=== PATIENT | male | born 1935 | race African-American/Black ===

== ENCOUNTER 2016-06-18 05:24 | Inpatient (IN) | payer OTHER ==
[2016-06-03 12:59] LABS: HEMATOCRIT 34.1 % (42.0-52.0); MCH 33.2 pg (26.0-34.0); MCHC 35.1 g/dL (28.0-37.0); MCV 94.6 fL (80.0-100.0); RBC 3.61 mil/uL (4.50-6.00); RDW 15.2 % (10.5-14.5); URINE BILIRUBIN NEGATIVE (Negative); URINE BLOOD NEGATIVE (Negative); URINE COLOR YELLOW; URINE GLUCOSE-RANDOM* NEGATIVE (Negative); URINE KETONES NEGATIVE (Negative); URINE LEUKOCYTES-REFLEX NEGATIVE (Negative); URINE PROTEIN (DIPSTICK) NEGATIVE (Negative); URINE UROBILINOGEN 0.2 E.U./dl (0.2-1.0); WBC 6.7 thou/uL (4.0-11.0)
[2016-06-03 13:16] LABS: PROTIME 10.5 Seconds (9.3-11.4)
[2016-06-03 13:32] LABS: ALBUMIN 3.8 g/dL (3.4-5.0); CALCIUM 9.4 mg/dL (8.5-10.1); CREATININE 1.3 mg/dL (0.6-1.3); POTASSIUM 3.6 mmol/L (3.5-5.1)
[2016-06-03 23:11] LABS: GLYCOHEMOGLOBIN (HGB A1C) 7.3 % (4.8-5.6)
[~2016-06-18] VITALS: Ht 177.8 cm; Wt 100.7 kg
[2016-06-18] VITALS (9 sets, daily range): BP systolic 154–186; BP diastolic 84–95
--- NOTE | ~2016-06-18 | EKG ---
[address] [address] ELECTROCARDIOGRAM REPORT Name: MARTY FOSTER Room #: PRE IN [facility]#: [id number] Admission: Attend Phys: Noel Angel MD Discharge: Date of : 35 Report #: [id number] THIS REPORT FOR: //name// [facility] Test Date: 2016-06-03 Test Time: 12:47:09 Pat Name: MARTY FOSTER Department: Room: Gender: [employer] Racker: Miller DEVINE : 1935 Requested By: Noel Angel Order Number: [id number] MD: Ramos Wheeler Measurements Intervals [place] Rate: 77 P: 42 MD: 144 QRS: -7 QRSD: 157 T: 26 QT: 408 QTc: 462 Interpretive Statements Sinus rhythm Right bundle branch block No previous ECG available for comparison Electronically Signed On 06-05-2016 8:54:01 CDT by Ramos Wheeler [email or web address] <ELECTRONICALLY SIGNED> By: Ramos Wheeler MD, [facility] 06/05/16 0854 1247 1247 Ramos Wheeler MD, [facility]ACC /EPI
--- NOTE | ~2016-06-18 | H ---
[facility] [place] [address] HISTORY AND PHYSICAL Name: MARTY FOSTER Room #: 542-P ADM IN M.R.#: [id number] Admission: 06/18/16 Attend Phys: Noel Angel MD Discharge: Date of : 35 Report #: [id number] THIS REPORT FOR: //name// For History and Physical, please see office documentation/handwritten note in the patient's medical record. By: 0810 Noel Angel MD /
--- NOTE | ~2016-06-18 | O ---
[facility] [place] [address] OPERATIVE REPORT Name: MARTY FOSTER Room #: 542-P ADM IN M.R.#: [id number] Admission: 06/18/16 Attend Phys: Noel Angel MD Discharge: Date of : 35 Report #: [id number] THIS REPORT FOR: //name// CC: Noel Salvador DO DATE OF SERVICE: 06/18/2016 PREOPERATIVE DIAGNOSES: 1. Right knee degenerative joint disease, severe. 2. Obesity, body mass index of 31.71. POSTOPERATIVE DIAGNOSES: 1. Right knee degenerative joint disease, severe. 2. Obesity, body mass index of 31.71. PROCEDURE: Right total knee arthroplasty. SURGEON: Noel Angel MD. WAREHOUSE SUPERVISOR: Elpidio Alberts, nurse practitioner. INDICATIONS FOR WAREHOUSE SUPERVISOR: During the course of operation, extensive manipulation, retraction, and limb positioning was required. This was afforded to me by my blacksmith assistant. This was especially important due to the patient's size. ANESTHESIA: General. INDICATIONS: See hospital H and P revisions, 06/18/2016. IMPLANTS UTILIZED: We used a DePuy PFC knee system. We used a cruciate retaining femoral component size 4 press fit. We used a size 4 tibial tray with 12.5 mm insert and a 41 mm oval dome patella. DESCRIPTION OF PROCEDURE: After adequate general anesthesia had been obtained, the patient's right lower extremity was prepped and draped in the usual meticulous sterile fashion. Limb was exsanguinated with gravity and tourniquet inflated to 350 torr. Anterior midline incision was made. SubQ divided sharply. Hemostasis obtained with electrocautery. Medial parapatellar incision was made. Infrapatellar fat pad excised. Medial release performed. Drill was used to drill the distal femur. This hole was enlarged, irrigated, suctioned, and the intramedullary guide placed the full length of the femur. The distal femoral cutting guide was pinned to the appropriate height and rotation. Distal femoral cut was made. The measurement device determined the size 4 as appropriate size for this patient. We marked the distal femur, impacted the [facility] [address] [place] [address] OPERATIVE REPORT Name: MARTY FOSTER Room #: 542-P ADM IN M.R.#: [id number] Admission: 06/18/16 Attend Phys: Noel Angel MD Discharge: Date of : 35 Report #: [id number] cutting guide into place, and then the anterior, posterior, and chamfer cuts were made. Rongeur was used to remove additional osteophytes. At this time, the ACL was transected, and tibia translated anteriorly. Menisci were excised. Drill was used to drill the central portion of the tibia. This hole was enlarged, irrigated, suctioned, and the intramedullary guide placed the full length of the tibia. The proximal tibial cutting guide pinned at appropriate height. Proximal tibia cut was made. 4 tray gave us the best coverage on the tibia. With the 12.[address], he had the best flexion and extension gap. He had full extension. Patella was then measured, cutting guide clamped into place, patellar cut was made. A 41 template gave us the best coverage. Pedicles were drilled. Trial component put in position, it tracked normally. At this time, the knee was taken through several cycles of flexion and extension. Tibial tray rotation was marked, distal femur drilled. Trial components were removed. Tibial keel cuts were made. The knee was irrigated with both pulse lavage and antibiotic irrigation. Bone plugs were fashioned and placed in the proximal tibia and distal femur. The cement was vacuum mixed, and when it reached the appropriate consistency, the knee was thoroughly dried, the tibial tray was cemented in to place. Excess cement was removed. The polyethylene was impacted in to place, and the femur impacted in to place, and the knee was taken out to 30 degrees of flexion. Uniform compression placed across the components. Patellar button was then cemented into place and again excess cement was removed. The knee was taken out to 30 degrees of flexion. Uniform compression placed across the components. Irrigation was placed in the wound and allowed to rest in the wound until the cement fully cured. When it had done so, the knee was irrigated, dried thoroughly, and inspected. Drains were placed superolaterally, both deep and superficial. Retinacular layer closed with combination of interrupted [id number] #1 Vicryl, as well as running #1 Tevdek. SubQ closed with 2-0 Monocryl. Skin closed with yue. Sterile compressive dressing was applied. Tourniquet deflated. By: 0840 1053 Noel Angel MD /melina
[~2016-06-18 05:24] MED LIST: AMARYL4 MG PO; ASPIR 8181 MG PO; ASPIRIN EC81 M1 PO; CHLORTHALIDONE25 MG PO; COREG25 MG PO; COZAAR100 MG PO; CRANBERRY500 M1 PO; FISH OIL 1,001000 M2 PO; FLUSH PO; GARLIC100 MG PO; GREEN COFFEE B400 MG PO; HYDROCHLOROTH12.5 M1 PO; IRON325 PO; KLOR-CON 1010 MEQ PO; METFORMIN HCL500 MG PO; MOBIC15 MG PO; NORVASC10 MG PO; OCUVITE TABLET1 EAC1 PO; PRILOSEC 20 MG20 MG PO; TRIFLUOPERAZINE5 M1 PO; TYLENOL325 MG PO; VITAMIN D-32000 UNIT PO; VITAMINC500 PO; WELCHOL 625 MG625 MG PO; ZETIA10 MG PO; ZINC50 MG PO; [UNRECOGNIZED DRUG - OTHER] PO
[2016-06-19] VITALS: BP 133/66
[2016-06-19 04:00] VITALS: BP 142/65
[2016-06-19 05:27] LABS: HEMATOCRIT 26.6 % (42.0-52.0); HEMOGLOBIN 8.9 gm/dL (14.0-18.0); MCH 31.8 pg (26.0-34.0); MCHC 33.6 g/dL (28.0-37.0); MCV 94.8 fL (80.0-100.0); PLATELET COUNT 245 thou/uL (150-400); RDW 14.6 % (10.5-14.5); WBC 11.6 thou/uL (4.0-11.0)
[2016-06-19 05:28] LABS: MANUAL DIFF YES
[2016-06-19 06:01] LABS: ALBUMIN 2.9 g/dL (3.4-5.0); CALCIUM 8.8 mg/dL (8.5-10.1); CREATININE 1.3 mg/dL (0.6-1.3); MAGNESIUM 1.3 mg/dL (1.8-2.4); POTASSIUM 3.2 mmol/L (3.5-5.1); TOTAL BILIRUBIN 0.7 mg/dL (<0.1-1.0); TOTAL PROTEIN 6.1 g/dL (6.4-8.2)
[2016-06-19 07:19] VITALS: BP 147/80
[2016-06-19 09:44] LABS: ABSOLUTE NEUTROPHILS 7.2 thou/uL (1.4-8.2); NUCLEATED RBCS 1 /100WBC; TOTAL CELL COUNT 100
[2016-06-19 09:45] LABS: ANISOCYTOSIS 1+
[2016-06-19 17:02] VITALS: BP 143/53
[2016-06-19 20:00] VITALS: BP 139/84
[2016-06-20 04:00] VITALS: BP 152/73
[2016-06-20 04:47] LABS: CALCIUM 8.9 mg/dL (8.5-10.1); CREATININE 1.2 mg/dL (0.6-1.3); HEMATOCRIT 24.8 % (42.0-52.0); HEMOGLOBIN 8.4 gm/dL (14.0-18.0); MAGNESIUM 1.8 mg/dL (1.8-2.4); MCHC 33.8 g/dL (28.0-37.0); MCV 94.6 fL (80.0-100.0); PLATELET COUNT 234 thou/uL (150-400); POTASSIUM 3.5 mmol/L (3.5-5.1); RBC 2.62 mil/uL (4.50-6.00); RDW 14.7 % (10.5-14.5); WBC 14.8 thou/uL (4.0-11.0)
[2016-06-20 05:25] LABS: MANUAL DIFF YES
[2016-06-20 07:45] VITALS: BP 170/70
[2016-06-20 07:50] VITALS: BP 170/70
[2016-06-20 07:53] LABS: ANISOCYTOSIS SLIGHT; PLATELET ESTIMATE NORMAL; TOTAL CELL COUNT 100
[2016-06-20 15:45] VITALS: BP 160/78
[2016-06-20 19:01] VITALS: BP 142/66
[2016-06-21 03:24] VITALS: BP 145/68
[2016-06-21 04:33] LABS: HEMATOCRIT 24.5 % (42.0-52.0); HEMOGLOBIN 8.3 gm/dL (14.0-18.0); MCH 32.1 pg (26.0-34.0); MCHC 33.8 g/dL (28.0-37.0); MCV 94.9 fL (80.0-100.0); PLATELET COUNT 238 thou/uL (150-400); RBC 2.59 mil/uL (4.50-6.00); RDW 14.9 % (10.5-14.5); WBC 12.6 thou/uL (4.0-11.0)
[2016-06-21 04:42] LABS: MANUAL DIFF YES
[2016-06-21] MEDS ORDERED: XARELTO10 MG PO (06:53)
[2016-06-21] MEDS ORDERED: PERCOCET 10-321 EACH PO (06:53)
[2016-06-21 08:06] VITALS: BP 155/72
[2016-06-21 08:31] LABS: ABSOLUTE NEUTROPHILS 9.3 thou/uL (1.4-8.2); PLATELET ESTIMATE NORMAL; TOTAL CELL COUNT 100
[2016-06-21 10:13] VITALS: BP 155/72
[2016-06-21 10:14] VITALS: BP 155/72
[2016-06-21 12:41] VITALS: BP 155/72
== END 2016-06-21 14:44 | disposition home health service (06) | DRG 470 ==
LOC: 5S 05:24 → TBA 05:24 → 5S 10:18 → PRE 11:26 → 5S 06-21 14:44
PROVIDERS: Internal Medicine; Nurse Practitioner; Orthopaedic Surgery
PROC: 0SRC0J9 Replacement of Right Knee Joint with Synthetic Substitute, Cemented, Open Approach (ICD-10-PCS; principal; 2016-06-18)
DX: M17.11 Unilateral primary osteoarthritis, right knee (principal); D62 Acute posthemorrhagic anemia; E66.9 Obesity, unspecified; Z68.31 Body mass index [BMI] 31.0-31.9, adult; E87.6 Hypokalemia; I10 Essential (primary) hypertension; E83.42 Hypomagnesemia; E11.9 Type 2 diabetes mellitus without complications; N40.0 Benign prostatic hyperplasia without lower urinary tract symptoms; E78.5 Hyperlipidemia, unspecified; Z79.82 Long term (current) use of aspirin; Z79.899 Other long term (current) drug therapy; Z88.1 Allergy status to other antibiotic agents
CPT/HCPCS: 10785; 50010; 50101; 50415; 50612; 50954; 51130; 51225; 51320; 51412; 51771; 52001; 52282; 53000; 53078; 53364; 56525; 56527; 62110; 62900; 64042; 64043; 70005

== ENCOUNTER 2018-06-08 08:17 | Inpatient (IN) | payer OTHER ==
[~2018-06-08] VITALS: Ht 177.8 cm; Wt 99.8 kg
[~2018-06-08 08:17] MED LIST changes: +PERCOCET 10-321 EACH PO; +XARELTO10 MG PO
[2018-06-08 08:24] VITALS: BP 134/61
[2018-06-08 08:54] LABS: URINE BILIRUBIN NEGATIVE (Negative); URINE BLOOD NEGATIVE (Negative); URINE CLARITY CLEAR; URINE COLOR YELLOW; URINE GLUCOSE-RANDOM* 3+ (Negative); URINE KETONES NEGATIVE (Negative); URINE LEUKOCYTES NEGATIVE (Negative); URINE NITRITE NEGATIVE (Negative); URINE PROTEIN (DIPSTICK) NEGATIVE (Negative); URINE UROBILINOGEN 0.2 E.U./dl (0.2-1.0)
[2018-06-08 08:55] LABS: ABSOLUTE NEUTROPHILS 4.1 thou/uL (1.4-8.2); BASOPHILS 0.9 % (0.0-2.0); HEMATOCRIT 36.2 % (42.0-52.0); HEMOGLOBIN 12.1 gm/dL (14.0-18.0); LYMPHOCYTES 23.2 % (24.0-44.0); MCH 32.8 pg (26.0-34.0); MCHC 33.5 g/dL (28.0-37.0); MCV 97.8 fL (80.0-100.0); MONOCYTES 8.8 % (1.0-8.0); PLATELET COUNT 344 thou/uL (150-400); POLYS 66.1 % (36.0-66.0); RDW 15.4 % (10.5-14.5); WBC 6.2 thou/uL (4.0-11.0)
[2018-06-08 09:23] LABS: ALBUMIN 3.7 g/dL (3.4-5.0); CALCIUM 9.9 mg/dL (8.5-10.1); CREATININE 1.9 mg/dL (0.7-1.3); POTASSIUM 4.6 mmol/L (3.5-5.1); TOTAL BILIRUBIN 0.7 mg/dL (<0.1-1.0); TOTAL PROTEIN 7.7 g/dL (6.4-8.2)
[2018-06-08 12:27] VITALS: BP 121/58
[2018-06-08 12:53] VITALS: BP 159/63
[2018-06-08] MEDS ORDERED: FLOMAX0.4 MG PO (14:05)
[2018-06-08] MEDS ORDERED: SEROQUEL 25 MG25 M1 PO (14:06)
[2018-06-08] MEDS ORDERED: FENOFIBRATE145 M1 PO (14:06)
[2018-06-08] MEDS ORDERED: ALLOPURINOL 10100 M1 PO (14:06)
--- NOTE | 2018-06-08 14:28 | 2DMMODE ---
[facility] [address] [place] [address] 2 D/M-MODE ECHOCARDIOGRAM Name: MARTY FOSTER Room #: 457-P ADM IN .R.#: [id number] ������������� Admission: 06/08/18 ������������� Attend Phys: Donnie Donohue MD Discharge: ��� ������������� ��� Date of : 35 Date of Service: 06/08/18 1428 �� Report #: [id number] �������� ��������������������������������������������[id number] THIS REPORT FOR: //name// APPROVED REPORT Study performed: 06/08/2018 14:00:11 EXAM: Comprehensive 2D, Doppler, and color-flow Echocardiogram Patient Location: Echo lab Room #: [facility] Status: routine BSA: 2.17 HR: 69 bpm BP: 159/63 mmHg Rhythm: NSR Other Information Study Quality: Adequate Indications Diabetes Hypertension/HDD Dizziness 2D Dimensions RVDd: 35.02 mm IVSd: 12.86 (7-11mm) LVOT Diam: 20.93 (18-24mm) LVDd: 50.46 mm PWd: 13.80 (7-11mm) Ascending Ao: 31.80 (22-36mm) LVDs: 30.51 (25-40mm) Aortic Root: 32.33 mm IVC: 11.00 mm Volumes Left Atrial Volume (Systole) Single Plane 4CH: 58.91 mL Single Plane 2CH: 64.60 mL LA ESV Index: 33.00 mL/m2 Aortic Valve AoV Peak Dave.: 1.73 m/s AO Peak Gr.: 12.01 mmHg LVOT Max P.93 mmHg LVOT Max V: 1.11 m/s FEROZ Vmax: 2.20 cm2 Mitral Valve [facility] [address] [place] [address] 2 D/M-MODE ECHOCARDIOGRAM Name: MARTY FOSTER Room #: 457-P [facility] IN [facility].#: [id number] ������������� Admission: 06/08/18 ������������� Attend Phys: Donnie Donohue MD Discharge: ��� ������������� ��� Date of : 35 Date of Service: 06/08/18 1428 �� Report #: [id number] �������� ��������������������������������������������[id number] E/A Ratio: 0.6 MV Decel. Time: 339.08 ms MV E Max Dave.: 0.61 m/s MV A Dave.: 0.97 m/s MV PHT: 98.33 ms IVRT: 124.57 ms Pulmonary Valve PV Peak Dave.: 1.02 m/s PV Peak Gr.: 4.14 mmHg Pulmonary Vein P Vein S: 0.42 m/s P Vein A: 0.34 m/s P Vein D: 0.27 m/s P Vein A Dur.: 120.0 msec P Vein S/D Ratio: 1.56 Left Ventricle The left ventricle is normal size. There is normal LV segmental wall motion. Mild concentric left ventricular hypertrophy. The left ventricular systolic function is normal. The left ventricular ejection fraction is within the normal range. LVEF is 60-65%. Grade I - abnormal relaxation pattern. Right Ventricle The right ventricle is normal size. The right ventricular systolic function is normal. Atria Left atrium is at the upper limits of normal. The right atrium size is normal. Aortic Valve The aortic valve is normal in structure. Aortic valve is calcified. No aortic regurgitation is present. There is no aortic valvular stenosis. Mitral Valve The mitral valve is normal in structure. There is no mitral valve regurgitation noted. No evidence of mitral valve stenosis. Tricuspid Valve The tricuspid valve is normal in structure. There is no tricuspid valve regurgitation noted. Pulmonic Valve The pulmonary valve is normal in structure. There is [place] [address] 2 D/M-MODE ECHOCARDIOGRAM Name: MARTY FOSTER Room #: 457-P [facility] IN .R.#: [id number] ������������� Admission: 06/08/18 ������������� Attend Phys: Donnie Donohue MD Discharge: ��� ������������� ��� Date of : 35 Date of Service: 06/08/18 1428 �� Report #: [id number] �������� ��������������������������������������������[id number] Great Vessels The aortic root is normal in size. IVC is normal in size and collapses >50% with inspiration. Pericardium There is no pericardial effusion. <Conclusion> The left ventricle is normal size. Mild concentric left ventricular hypertrophy. The left ventricular systolic function is normal. Grade I - abnormal relaxation pattern. The right ventricle is normal size. Left atrium is at the upper limits of normal. The right atrium size is normal. Aortic valve is calcified. There is no aortic valvular stenosis. There is no mitral valve regurgitation noted. There is no tricuspid valve regurgitation noted. ��������������������������������������������� <ELECTRONICALLY SIGNED> ���������������������������������������� By: John Cobb MD ��������������������������������������������� 06/08/18 1428 1428 1428 John Cobb MD /INF
[2018-06-08 14:47] VITALS: BP 171/69; BP 174/62
[2018-06-08 14:48] VITALS: BP 140/75
[2018-06-08 15:20] LABS: FOLIC ACID > 100.0 ng/mL (8.6-58.9)
--- NOTE | 2018-06-08 17:07 | EKG ---
[address] [place] [address] ELECTROCARDIOGRAM REPORT Name: MARTY FOSTER Room #: 457-P ADM IN M.R.#: [id number] ������������������ Admission: 06/08/18 ������������������ Attend Phys: Donnie Donohue MD Discharge: ������������������ Date of : 35 Report #: [id number] ����������������������������������������������������������������� [id number] THIS REPORT FOR: //name// [facility] ED Test Date: 2018-06-08 Test Time: 08:36:43 Pat Name: MARTY FOSTER Department: Room: [facility] Gender: M Mosaic Technician: YANDELG : 1935 Requested By: Chencho Kendall Order Number: [id number] MD: Ramos Wheeler Measurements Intervals [place] Rate: 69 P: 47 MN: 151 QRS: -1 QRSD: 165 T: 17 QT: 427 QTc: 458 Interpretive Statements Sinus rhythm Atrial premature complex Right bundle branch block Compared to ECG 06/03/2016 12:47:09 Atrial premature complex(es) now present Electronically Signed On 06-08-2018 17:06:49 CDT by Ramos Wheeler [email or web address] ��������������������������������������������� <ELECTRONICALLY SIGNED> ���������������������������������������� By: Ramos Wheeler MD, [facility] ��������������������������������������������� 06/08/18 1706 0836 0836 Ramos Wheeler MD, [facility] /EPI
--- NOTE | 2018-06-08 18:14 | NUR ---
PT ARRIVED ON UNIT THIS AFTERNOON. ADMISSION HX, EDUCATION AND ASSESSMENT COMPLETE. PT RESTING COMFORTABLY.
[2018-06-08 19:06] VITALS: BP 146/68
[2018-06-09 04:02] VITALS: BP 134/67
[2018-06-09 05:22] LABS: ABSOLUTE NEUTROPHILS 2.5 thou/uL (1.4-8.2); BASOPHILS 0.6 % (0.0-2.0); EOSINOPHILS 1.2 % (0.0-3.0); HEMATOCRIT 33.4 % (42.0-52.0); HEMOGLOBIN 11.3 gm/dL (14.0-18.0); LYMPHOCYTES 40.6 % (24.0-44.0); MCH 32.9 pg (26.0-34.0); MCHC 33.9 g/dL (28.0-37.0); MCV 97.1 fL (80.0-100.0); MONOCYTES 11.3 % (1.0-8.0); PLATELET COUNT 323 thou/uL (150-400); POLYS 46.3 % (36.0-66.0); RBC 3.44 mil/uL (4.50-6.00); RDW 15.4 % (10.5-14.5); WBC 5.3 thou/uL (4.0-11.0)
[2018-06-09 05:31] LABS: CALCIUM 9.6 mg/dL (8.5-10.1); CREATININE 1.3 mg/dL (0.7-1.3); MAGNESIUM 1.5 mg/dL (1.8-2.4); POTASSIUM 3.7 mmol/L (3.5-5.1)
[2018-06-09 07:35] VITALS: BP 140/77
--- NOTE | 2018-06-09 10:35 | NUR ---
cm visited with pt at bedside. pt up in recliner chair, open eyes to calling of his name. pt preferrs going by vanessa, a & o x3 with confusion, forgetfulness, and pleasant. intro to cm, dcp, transition of care, and home health. " had little home health. live with and son. independent, dress myself, bathe, manage own medication. drive car. 1 fall in last year. 2 step into house then basement and don't go down there very often 12 steps with hr"/pt. noted pt would open and close eyes during conversation. letting pt rest, franco visited with nu [phone] and son alexys via phone call rt dcp, " yep he is independent. no fall or injury in last year. no home health or rehab in past. does not check bs at home"/nu. will cont following as needed for dc needs.
--- NOTE | 2018-06-09 12:14 | NUR ---
TOWARDS POC PT A/O X4, VSS, AFEBRILE, C/O OF HEADACHE THIS AM MANAGED BY MEDS. NO SYNCOPAL EPISODES NOTED. NO CONCERNS VOICED AT THIS TIME, WILL CONTINUE TO MONITOR.
--- NOTE | 2018-06-09 13:08 | NUR ---
Nutrition: Admitted for weakness, fall. Consulted for wt changes and also high nutrition risk. Current wt at usual of 220 lbs. Was 220 lbs last May as well. Stated has lost 10 lbs recently without trying but could not give time frame. Intake 100% and reported good appetite. Tries to follow DM diet at home. Offered DM diet education, pt denied. Low nutrition risk.
[2018-06-09 15:37] VITALS: BP 141/56
[2018-06-09 16:46] VITALS: BP 140/77
== END 2018-06-09 17:35 | disposition home or self-care (01) | DRG 684 ==
LOC: ER 08:17 → EROBS 11:44 → 4W 11:44 → ENTRNSPT 06-09 17:12 → 4W 06-09 17:35
PROVIDERS: Emergency Medicine; Nurse Practitioner; ADMIT Hospitalist
DX: N17.9 Acute kidney failure, unspecified (principal); I10 Essential (primary) hypertension; K21.9 Gastro-esophageal reflux disease without esophagitis; M62.84 Sarcopenia; N40.0 Benign prostatic hyperplasia without lower urinary tract symptoms; M19.90 Unspecified osteoarthritis, unspecified site; M10.9 Gout, unspecified; R26.81 Unsteadiness on feet; E86.0 Dehydration; E78.5 Hyperlipidemia, unspecified; E11.65 Type 2 diabetes mellitus with hyperglycemia; Z79.1 Long term (current) use of non-steroidal anti-inflammatories (NSAID); Z79.899 Other long term (current) drug therapy; Z86.73 Personal history of transient ischemic attack (TIA), and cerebral infarction without residual deficits; Z88.2 Allergy status to sulfonamides; Z88.8 Allergy status to other drugs, medicaments and biological substances
CPT/HCPCS: 10045